=== PATIENT | female | born 1965 | race Caucasian/White ===

== ENCOUNTER 2017-07-31 09:06 | Emergency (ER) | payer BC, OTHER ==
[2017-07-31 09:17] VITALS: BP 114/83; PULSE 99; RESP 16; TEMP 98.6; O2SAT 94
[2017-07-31] MEDS ORDERED: predniSONE 20 MG TAB PO ONE (09:26)
--- NOTE | 2017-07-31 09:26 | EDPHY ---
HPI/HX/ROS/PE/MDM Narrative: CHIEF COMPLAINT: Rash, swollen eye HPI: This patient is a 51 year old female complaining of a rash on her neck and chest onset yesterday and left eye swelling onset this morning. Yesterday, she noted an itchy red rash on her neck and chest, and tried taking oral Benadryl and Benadryl cream. This morning, she woke with her left eye swollen shut. She took more Benadryl, which relieved this slightly. She denies visual changes. She denies recent fever or illness. She had not had exposure to new necklaces, detergent, clothing, or animals. REVIEW OF SYSTEMS: Aside from elements discussed in the HPI, a comprehensive 10-point review of systems was reviewed and is negative. PMH: Denies SOCIAL HISTORY: , lives in [place]. PHYSICAL EXAM: General:Patient is alert, in no acute distress. ENT: Swelling to left periorbital area. Eyes are normal to inspection. Neck: Normal inspection. Full range of motion. Respiratory:No respiratory distress. Breath sounds normal bilaterally. Cardiovascular: Regular rate and rhythm. Strong peripheral pulses. Normal cap refill. Abdomen:The abdomen is nontender to palpation. There are no peritoneal signs. There are normal bowel sounds. Back: Normal to inspection. No tenderness to palpation. Skin: Mild hives and erythema to anterior chest and neck. Normal color. Warm and dry. Extremities: Normal appearance. Full range of motion. Neuro: Oriented x3. Normal motor function. Normal sensory function. ED Course: 51 year old female presents with mild hives and erythema to anterior chest and neck as well as left periorbital swelling. She cannot identify any precipitating factors. Her only known allergy is Bactrim. Plan to administer 60mg PO Prednisone. Patient is already taking Benadryl. The patient likely has contact dermatitis and/or mild allergic reaction. I considered zoster, but there are no distinct lesions and the areas involved include more than one dermatome. There is no sign of cellulitis. No airway involvement. Discussed follow up and return precautions, as well as her medication regimen. The patient is comfortable with this plan, and will be discharged home in good condition. - Data Points Medications Given: Discontinued Medications Prednisone (Prednisone) 60 mg PO EDNOW ONE Stop: 07/31/17 09:27 Last Admin: 09/14/17 09:30 Dose: 60 mg General Time Seen by Provider: 07/31/17 09:16 Initial Vital Signs: Initial Vital Signs Temperature (C) 37 C 07/31/17 09:10 Heart Rate 99 07/31/17 09:10 Respiratory Rate 16 07/31/17 09:10 Blood Pressure 114/83 H 07/31/17 09:10 O2 Sat (%) 94 07/31/17 09:10 O2 Delivery Mode Room Air Allergies/Adverse Reactions: bactrim Allergy (Uncoded 07/31/17 09:13) Home Medications: Medication Instructions Recorded predniSONE 60 mg PO DAILY #9 tab 07/31/17 Departure - Departure Disposition: Home, Routine, Self-Care Clinical Impression: Contact dermatitis, Allergic reaction Condition: Good Instructions: Acute Rash (ED) Additional Instructions: 1. Take your Prednisone as prescribed. Continue to take Benadryl as directed on the packaging. You may also take Pepcid as directed on the packaging. 2. Follow up with your primary care provider in the next week for continued evaluation. 3. Return to the emergency department for fever, difficulty breathing, swelling in mouth or throat, worsening or painful lesions associated with your rash, or other worsening of condition. Referrals: NONE *PRIMARY CARE P,. [Primary Care Provider] - As per Instructions Bella Jimenez MD [Medical Doctor] - As per Instructions Prescriptions: predniSONE 60 mg PO DAILY #9 tab Report Scribed for: Ryan Kinsey Report Scribed by: Edith Ritter Date of Report: 07/31/17 Time of Report: 09:22 Physician Review and Approval Statement: Portions of this note were transcribed by an ED scribe. I personally performed the history, physical exam, and medical decision making; and confirm the accuracy of the information in the transcribed note.
== END 2017-07-31 09:47 | disposition home or self-care (01) ==
DX: L23.9 Allergic contact dermatitis, unspecified cause (principal)

== ENCOUNTER 2017-09-05 08:13 | Emergency (ER) | payer OTHER ==
[2017-09-05] MEDS ORDERED: diphenhydrAMINE 25 MG CAP PO ONE (08:51)
[2017-09-05] MEDS ORDERED: FAMOTIDINE 20 MG TAB PO ONE (08:51)
[2017-09-05] MEDS ORDERED: predniSONE 20 MG TAB PO ONE (08:51)
--- NOTE | 2017-09-05 09:12 | EDPHY ---
H & P Time Seen by Provider: 09/05/17 08:42 HPI/ROS: HPI Facial swelling. 51-year-old female by private vehicle. This patient reports that she developed a rash on the anterior aspect of her upper chest wall on Friday. It has persisted since that time. It is isolated to the upper anterior chest wall. She reports that last night she started developing facial swelling which she describes as mostly around her eyes, greater on the left side versus the right side. No new detergent. Denies change in diet. No foreign travel. No new medications. Rash described as very itchy. She last took Benadryl yesterday. ROS: Constitutional: No fever, no chills. No weakness. Eyes: No discharge. No changes in vision. As above. ENT: No sore throat. No nasal congestion or rhinorrhea. Respiratory: No cough. No shortness of breath. Cardiac: No chest pain, no palpitations. Gastrointestinal: No abdominal pain, no vomiting, no diarrhea. Genitourinary: No hematuria. No dysuria or increased frequency with urination. Musculoskeletal: No back pain. No neck pain. No myalgias or arthralgias. Skin: As above. Neurological: No headache. No focal weakness or altered sensation. Past medical history: Denies. She reports she had an episode similar to this about a year ago. Social history: Nonsmoker. No alcohol. Here by herself. Physical Exam: General Appearance: Alert, no distress. This patient is responding to questions appropriately and in full sentences. This patient appears well- hydrated and well-nourished. Eyes: Pupils equal and round no pallor or injection. She has a mild facial edema involving the periorbital tissues, upper and lower eyelids, slightly worse on the left side with a very small amount of erythema medial aspect of upper eyelid. She describes this is itchy. ENT, Mouth: Mucous membranes are moist. The pharyngeal tissues are unremarkable. No edema or swelling. No asymmetry suggestive of abscess. No erythema or exudates. No voice changes. No stridor on auscultation of her neck. Normal upper airway sounds. Respiratory: There are no retractions, lungs are clear to auscultation with good air movement bilaterally. Cardiovascular: Regular rate and rhythm. No murmur. Neurological: Motor sensory function is grossly intact. Cranial nerves are normal. Gait is normal. Skin: Warm and dry, no rashes. Musculoskeletal: Neck is supple and nontender. Extremities are symmetrical. All joints range without pain or impingement. Psychiatric: No agitation. No depression. Database: EKG: Imaging: Procedures: Emergency department course: Vital signs reviewed. Medication allergies reviewed. She was given 60 mg of oral prednisone, 40 mg of oral Pepcid and 50 mg of oral Benadryl. 10:15 a.m., patient re-evaluated. Resting comfortably at this time. She has had significant reduction in her periorbital swelling after above medications. No voice changes. No upper airway issues. She feels comfortable going home and I feel she is safe for discharge. I will prescribe her prednisone over the next 3 days without taper. I discussed dosing of Pepcid as well as Benadryl over the next 3 days as well. Return to emergency department precautions reviewed. All of her questions were answered. She was discharged in good condition. Differential Diagnosis: The differential diagnosis on this patient includes but is not limited to environmental allergen exposure, facial angioedema. Anaphylaxis, anaphylactoid reaction unlikely. This represents a partial list of diagnoses considered. These considerations are based on history, physical exam, past history, reassessment and diagnostic testing. Smoking Status: Never smoked Constitutional: Initial Vital Signs Temperature (C) 36.8 C 09/05/17 08:14 Heart Rate 94 09/05/17 08:14 Respiratory Rate 16 09/05/17 08:14 Blood Pressure 117/86 H 09/05/17 08:14 O2 Sat (%) 96 09/05/17 08:14 O2 Delivery Mode Room Air Allergies/Adverse Reactions: bactrim Allergy (Uncoded 07/31/17 09:13) Home Medications: Medication Instructions Recorded predniSONE 60 mg PO DAILY #9 tab 07/31/17 predniSONE [prednisone 20mg (RX)] 60 mg PO DAILY #10 tab 09/05/17 Medical Decision Making - Data Points Medications Given: Discontinued Medications Diphenhydramine HCl (Benadryl) 50 mg PO EDNOW ONE Stop: 09/05/17 08:52 Last Admin: 09/05/17 09:05 Dose: 50 mg Famotidine (Pepcid) 40 mg PO EDNOW ONE Stop: 09/05/17 08:52 Last Admin: 09/05/17 09:05 Dose: 40 mg Prednisone (Prednisone) 60 mg PO EDNOW ONE Stop: 09/05/17 08:52 Last Admin: 09/05/17 09:05 Dose: 60 mg Departure - Departure Disposition: Home, Routine, Self-Care Clinical Impression: Facial swelling, Allergic reaction Condition: Good Instructions: Acute Rash (ED), General Allergic Reaction (ED) Additional Instructions: Read and follow provided instructions. Follow-up with your primary care physician on Friday for re-evaluation as needed. Your primary care physician can refer you to an firefighting equipment specialist as needed. Take medication as prescribed. Benadryl/diphenhydramine: 50 mg as needed for rash, facial swelling and itching every 6-8 hours over the next 3 days. Pepcid: 40 mg twice daily or every 12 hours as needed for facial swelling and itching as well as rash over the next 3 days. Return to the emergency department for worsening symptoms, worsening rash, worsening facial swelling, voice changes, difficulty breathing or other serious concerns. Referrals: NONE *PRIMARY CARE P,. [Primary Care Provider] - As per Instructions Prescriptions: predniSONE [prednisone 20mg (RX)] 60 mg PO DAILY #10 tab
[2017-09-05 10:25] VITALS: BP 127/87; PULSE 76; RESP 18; TEMP 98.1; O2SAT 97
== END 2017-09-05 10:25 | disposition home or self-care (01) ==
DX: R22.0 Localized swelling, mass and lump, head (principal); T78.40XA Allergy, unspecified, initial encounter